=== PATIENT | male | born 1995 | race Caucasian/White ===

== ENCOUNTER 2020-03-03 18:47 | Emergency (ER) | payer MEDICAID ==
[~2020-03-03] VITALS: Ht 177.8 cm; Wt 83.9 kg
[2020-03-03 18:51] VITALS: BP 131/84
[2020-03-03] MEDS ORDERED: DICYCLOMINE HCL LIQUID 10 MG/5 ML UDC PO ONE (19:35)
[2020-03-03] MEDS ORDERED: ALUMINUM HYD/MAG/SIMETHICONE 30 ML UDC PO ONE (19:35)
[2020-03-03] MEDS ORDERED: LIDOCAINE VISCOUS 2% 20 ML UDC PO ONE (19:35)
[2020-03-03 20:32] VITALS: BP 135/75
== END 2020-03-03 20:32 | disposition home or self-care (01) ==
LOC: MED 18:47
DX: K21.9 Gastro-esophageal reflux disease without esophagitis (principal); F19.10 Other psychoactive substance abuse, uncomplicated; J45.901 Unspecified asthma with (acute) exacerbation; R03.0 Elevated blood-pressure reading, without diagnosis of hypertension
CPT/HCPCS: 71045; 93005; 99284; Q0092

== ENCOUNTER 2020-06-21 18:51 | Emergency (ER) | payer MEDICAID, SELFPAY ==
[~2020-06-21] VITALS: Ht 177.8 cm; Wt 82.6 kg
[2020-06-21 19:05] VITALS: BP 130/67
--- NOTE | 2020-06-21 19:10 | NUR ---
PT SITTING IN TENT, RR EVEN AND UNLABORED,VSS , NO ACUTE DISTRESS NOTED AT THIS TIME , PT AWAITING MEDICAL EVALUATION.
--- NOTE | 2020-06-21 19:27 | NUR ---
Dr. Wyman examining patient.
--- NOTE | 2020-06-21 19:30 | NUR ---
PT ASSESSMENT COMPLETED BY DR. MUELLER , NO NURSING INTERVENTIONS NEEDED AT THIST TIME.
[2020-06-21 20:09] VITALS: BP 130/67
--- NOTE | 2020-06-21 20:09 | NUR ---
Patient discharged with v/s stable. Written and verbal after care instructions given and explained. Patient alert, oriented and verbalized understanding of instructions. Ambulatory with steady gait. All questions addressed prior to discharge. ID band removed. Patient advised to follow up with PMD. Rx of ALBUTEROL & MOTRIN given. Patient educated on indication of medication including possible reaction and side effects. Opportunity to ask questions provided and answered.
== END 2020-06-21 20:09 | disposition home or self-care (01) ==
LOC: MED 18:51
DX: M79.10 Myalgia, unspecified site (principal); J45.909 Unspecified asthma, uncomplicated
CPT/HCPCS: 99283

== ENCOUNTER 2020-07-24 02:20 | Emergency (ER) | payer MEDICAID, SELFPAY ==
[~2020-07-24] VITALS: Ht 177.8 cm; Wt 82.6 kg
[2020-07-24 02:24] VITALS: BP 132/82
--- NOTE | 2020-07-24 02:28 | NUR ---
to ED bed 07
--- NOTE | 2020-07-24 02:33 | NUR ---
Dr. Garcia examining patient.
[2020-07-24] MEDS ORDERED: IBUPROFEN 600 MG TAB PO ONE ×2 (02:35→02:40)
--- NOTE | 2020-07-24 02:35 | NUR ---
PT C/O sharp 8/10 RT second finger pain that radiates up RT arm S/P shuting car door on finger. PT tx with 2 beers. PT reports shutting car door on finger and then walking away with finger stuck in door causing him to pull on hand/finger. Finger tip is purple, redness to finger, no swelling, + ROM, + CMS, no deformity present.
--- NOTE | 2020-07-24 02:40 | NUR ---
X-ray at bedside
[2020-07-24] MEDS ORDERED: IBUPROFEN 600 MG TAB ONE (02:41)
[2020-07-24 03:16] VITALS: BP 132/82
--- NOTE | 2020-07-24 03:16 | NUR ---
Patient discharged with v/s stable. Written and verbal after care instructions given and explained. Patient verbalized understanding. Ambulatory with steady gait. All questions addressed prior to discharge. Advised to follow up with PMD.
== END 2020-07-24 03:16 | disposition home or self-care (01) ==
LOC: MED 02:20
DX: S63.501A Unspecified sprain of right wrist, initial encounter (principal); S60.021A Contusion of right index finger without damage to nail, initial encounter; J45.909 Unspecified asthma, uncomplicated; V49.9XXA Car occupant (driver) (passenger) injured in unspecified traffic accident, initial encounter; Y93.89 Activity, other specified; Y92.89 Other specified places as the place of occurrence of the external cause; Y99.8 Other external cause status
CPT/HCPCS: 73130; 99283; Q0092

== ENCOUNTER 2021-06-10 20:04 | Emergency (ER) | payer MEDICAID ==
[~2021-06-10] VITALS: Ht 177.8 cm; Wt 84.4 kg
[2021-06-10 20:55] VITALS: BP 145/87
--- NOTE | 2021-06-10 20:58 | NUR ---
TO LOBBY A/W BED AMBULATORY
[2021-06-10] MEDS ORDERED: KETOROLAC 60 MG/2 ML VIAL IM ONE (22:35)
--- NOTE | 2021-06-10 22:44 | NUR ---
PT TAKEN TO BED 11.
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
--- NOTE | 2021-06-10 23:02 | NUR ---
Bebeto chacon in [facility] - 06/10/21 at 2310 by [email or web address] PT RETURNED FROM CT.
--- NOTE | 2021-06-10 23:02 | NUR ---
PT TAKEN TO CT VIA W.C.
--- NOTE | 2021-06-10 23:09 | NUR ---
PT RETURNED FROM CT.
[2021-06-10] MEDS ORDERED: NAPR-54 PO (23:20)
--- NOTE | 2021-06-10 23:22 | NUR ---
ERMD AT BEDSIDE.
[2021-06-11] MEDS ORDERED: IBUP-2213 PO (22:51)
[2021-06-11] MEDS ORDERED: MECL-303 PO (22:51)
== END 2021-06-10 23:24 | disposition home or self-care (01) ==
LOC: MED 20:04
DX: S22.41XA Multiple fractures of ribs, right side, initial encounter for closed fracture (principal); S06.0X0A Concussion without loss of consciousness, initial encounter; J45.909 Unspecified asthma, uncomplicated; Z79.1 Long term (current) use of non-steroidal anti-inflammatories (NSAID); Y08.89XA Assault by other specified means, initial encounter; Y93.89 Activity, other specified; Y92.89 Other specified places as the place of occurrence of the external cause; Y99.8 Other external cause status
CPT/HCPCS: 70450; 71101; 96372; 99284; J1885

== ENCOUNTER 2021-06-11 21:17 | Emergency (ER) | payer MEDICAID ==
[~2021-06-11] VITALS: Ht 177.8 cm; Wt 85.7 kg
[~2021-06-11 21:17] MED LIST: NAPR-54 PO
[2021-06-11 21:25] VITALS: BP 124/84
--- NOTE | 2021-06-11 21:28 | NUR ---
TO LOBBY A/W BED AMBULATORY
--- NOTE | 2021-06-11 22:08 | NUR ---
PT RETURN FROM CT
[2021-06-11 22:16] LABS: BASOPHILS % (AUTO) 0.5 % (0.0-2.0); EOSINOPHILS # (AUTO) 0.1 K/uL (0-0.4); EOSINOPHILS % (AUTO) 1.6 % (0.0-4.0); HEMATOCRIT 45.5 % (36-52); HEMOGLOBIN 15.7 g/dL (12.0-18.0); LYMPHOCYTES # (AUTO) 1.6 K/uL (2.0-11.5); LYMPHOCYTES % (AUTO) 19.2 % (20.5-51.1); MEAN CORPUSCULAR HEMOGLOBIN 33 pg (27-31); MEAN CORPUSCULAR HGB CONC 34 g/dL (33-37); MEAN CORPUSCULAR VOLUME 96.2 fL (80-94); MONOCYTES % (AUTO) 12.9 % (1.7-9.3); NEUTROPHILS # (AUTO) 5.3 K/uL (1.8-7.7); NEUTROPHILS % (AUTO) 65.8 % (42.2-75.2); PLATELET COUNT (AUTO) 211 K/uL (140-450); RED BLOOD CELL COUNT(AUTO) 4.73 MIL/uL (4.20-6.10); RED CELL DISTRIBUTION WIDTH 12.9 % (11.6-13.7); WHITE BLOOD COUNT (AUTO) 8.1 K/uL (4.8-10.8)
[2021-06-11 22:42] LABS: ALBUMIN 4.3 g/dL (3.4-5.0); ANION GAP 10.7 (8-16); CARBON DIOXIDE 30.2 mmol/L (21-32); CREATININE 1.1 mg/dL (0.6-1.3); POTASSIUM 3.9 mmol/L (3.5-5.1); TOTAL BILIRUBIN 1.2 mg/dL (0.0-1.0)
[2021-06-11] MEDS ORDERED: MECL-303 PO (22:51)
[2021-06-11] MEDS ORDERED: IBUP-2213 PO (22:51)
[2021-06-11] MEDS ORDERED: MECLIZINE 25 MG TAB PO ONE (22:55)
[2021-06-11] MEDS ORDERED: IBUPROFEN 800 MG TAB PO ONE (22:55)
--- NOTE | 2021-06-11 23:20 | NUR ---
MEDICATED PER ERMDS ORDER, TOLERATED WELL.
[2021-06-11 23:54] VITALS: BP 124/84
--- NOTE | 2021-06-11 23:54 | NUR ---
Patient discharged with v/s stable. Written and verbal after care instructions given and explained. Patient alert, oriented and verbalized understanding of instructions. Ambulatory with steady gait. All questions addressed prior to discharge. ID band removed. Patient advised to follow up with PMD. Rx of IBUPROFEN AND ANTIVERT given. Patient educated on indication of medication including possible reaction and side effects. Opportunity to ask questions provided and answered.
== END 2021-06-11 23:54 | disposition home or self-care (01) ==
LOC: MED 21:17
DX: S06.0X9A Concussion with loss of consciousness of unspecified duration, initial encounter (principal); J45.909 Unspecified asthma, uncomplicated; Y04.0XXA Assault by unarmed brawl or fight, initial encounter; Y93.89 Activity, other specified; Y92.89 Other specified places as the place of occurrence of the external cause; Y99.8 Other external cause status
CPT/HCPCS: 36415; 70450; 80053; 85025; 93005; 99285; J8597

== ENCOUNTER 2022-05-17 22:35 | Emergency (ER) | payer BC, MEDICAID ==
[~2022-05-17] VITALS: Ht 177.8 cm; Wt 86.2 kg
[~2022-05-17 22:35] MED LIST changes: +IBUP-2213 PO; +MECL-303 PO
[2022-05-17 22:43] VITALS: BP 149/85
--- NOTE | 2022-05-17 22:46 | NUR ---
Patient waited at lobby.
--- NOTE | 2022-05-18 01:23 | NUR ---
Called first time-no show in lobby or outside.
--- NOTE | 2022-05-18 01:25 | NUR ---
Made call out in the ER lobby - no answer not seen by physician.
--- NOTE | 2022-05-18 01:48 | NUR ---
PATIENT LEFT WITHOUT BEING SEEN BY DR. Castañeda. NO FURTHER CARE PROVIDED FOR PATIENT.
== END 2022-05-18 01:48 | disposition left against medical advice (07) ==
LOC: MED 22:35
DX: R07.9 Chest pain, unspecified (principal); Z53.21 Procedure and treatment not carried out due to patient leaving prior to being seen by health care provider

== ENCOUNTER 2024-08-25 17:14 | Emergency (ER) | payer BC, MEDICAID ==
[~2024-08-25] VITALS: Ht 177.8 cm; Wt 89.0 kg
[~2024-08-25 17:14] MED LIST changes: +NAPR-337 PO; -NAPR-54 PO
[2024-08-25 17:17] VITALS: BP 125/84; PULSE 78; RESP 16; TEMP 98.4; O2SAT 100
[2024-08-25] MEDS ORDERED: MECL-303 PO (18:55)
[2024-08-25 19:27] VITALS: BP 125/84; PULSE 78; RESP 16; TEMP 98.4; O2SAT 100
== END 2024-08-25 19:25 | disposition home or self-care (01) ==
LOC: MED 17:14
DX: H81.10 Benign paroxysmal vertigo, unspecified ear (principal); R07.89 Other chest pain; J45.909 Unspecified asthma, uncomplicated; Z79.899 Other long term (current) drug therapy; Z88.1 Allergy status to other antibiotic agents
CPT/HCPCS: 93005; 99283